=== PATIENT | male | born 1995 | race Caucasian/White ===

== ENCOUNTER 2020-07-25 08:27 | Outpatient (REF) | payer OTHER, SELFPAY | END 2020-07-25 08:28 | disposition home or self-care (01) | LOC: HO.LAB 08:27 | PROVIDERS: Visit Provider Internal Medicine | DX: Z20.828 Contact with and (suspected) exposure to other viral communicable diseases (principal) | CPT/HCPCS: C9803; U0003 ==

== ENCOUNTER 2021-01-09 10:36 | Outpatient (REF) | payer OTHER, SELFPAY ==
[2021-01-09 10:56] LABS: COVID-19 Test Negative (Negative)
== END 2021-01-09 10:37 | disposition home or self-care (01) ==
LOC: HO.LAB 10:36
PROVIDERS: Visit Provider Internal Medicine
DX: Z20.822 Contact with and (suspected) exposure to COVID-19 (principal)
CPT/HCPCS: 36415; 87635; C9803

== ENCOUNTER 2021-01-22 10:06 | Outpatient (REF) | payer OTHER, SELFPAY ==
[2021-01-22 10:25] LABS: COVID-19 Test Negative (Negative)
== END 2021-01-22 10:07 | disposition home or self-care (01) ==
LOC: HO.LAB 10:06
PROVIDERS: Visit Provider Internal Medicine
DX: Z20.822 Contact with and (suspected) exposure to COVID-19 (principal)
CPT/HCPCS: 36415; 87635; C9803

== ENCOUNTER 2021-09-13 15:09 | Outpatient (REF) | payer OTHER, SELFPAY ==
[2021-09-13 16:53] LABS: Binax Internal Control QC Valid; Binax Lot number: 9864; Binax Now Covid-19 Ag Positive (Negative)
== END 2021-09-13 15:10 | disposition home or self-care (01) ==
LOC: HO.LAB 15:09
PROVIDERS: Visit Provider Internal Medicine
DX: Z20.822 Contact with and (suspected) exposure to COVID-19 (principal)
CPT/HCPCS: 36415; C9803

== ENCOUNTER 2021-09-25 13:12 | Outpatient (REF) | payer OTHER, SELFPAY ==
[2021-09-25 15:05] LABS: Binax Now Covid-19 Ag Negative (Negative)
[2021-09-25 15:06] LABS: Binax Internal Control QC Valid
== END 2021-09-25 13:13 | disposition home or self-care (01) ==
LOC: HO.LAB 13:12
PROVIDERS: Visit Provider Internal Medicine
DX: Z20.822 Contact with and (suspected) exposure to COVID-19 (principal)
CPT/HCPCS: C9803

== ENCOUNTER 2022-04-12 20:39 | Emergency (ER) | payer OTHER, SELFPAY ==
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
[2022-04-12 22:12] VITALS: BP 139/84; PULSE 78; RESP 14; TEMP 36.3; O2SAT 95; BMI 32.5
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
[2022-04-13] MEDS: Ibuprofen 600 MG TABLET PO (02:15)
== END 2022-04-13 02:16 | disposition home or self-care (01) ==
PROVIDERS: Emergency Provider Emergency Medicine Emergency Medical Services
DX: S80.12XA Contusion of left lower leg, initial encounter (principal); S63.602A Unspecified sprain of left thumb, initial encounter; S63.611A Unspecified sprain of left index finger, initial encounter; S63.613A Unspecified sprain of left middle finger, initial encounter; V43.52XA Car driver injured in collision with other type car in traffic accident, initial encounter; W22.11XA Striking against or struck by driver side automobile airbag, initial encounter; Y93.89 Activity, other specified; Y92.414 Local residential or business street as the place of occurrence of the external cause; Y99.8 Other external cause status
CPT/HCPCS: 73110; 73130; 99283